=== PATIENT | male | born 1965 | race Caucasian/White ===

== ENCOUNTER 2021-02-21 17:28 | Inpatient (IN) ==
[2021-02-21] MEDS ORDERED: SODIUM CHLORIDE 0.9% 2,000 ML IV STA (18:13)
[2021-02-21] MEDS ORDERED: cefTRIAXone 1,000 MG in SODIUM CHLORIDE 0.9% 100 ML IV STA (18:13)
[2021-02-21 18:20] LABS: Basophils % 0.1 % (0.0-0.8); Hematocrit 40.1 VOL% (42.0-52.0); Hemoglobin 13.6 GM/DL (14.0-18.0); Immature Granulocytes % 1.1 %; Immature Granulocytes Absolute 0.15 #; Lymphocytes # 0.7 10*3/uL (1.4-4.0); Lymphocytes % 4.9 % (21.2-54.2); Mean Corpuscular HGB Conc 33.9 GM/DL (32-36); Mean Platelet Volume 10.5 FL (9.6-12.0); Monocytes % 7.2 % (1.7-12.7); Neutrophils % 86.7 % (38.7-73.9); Platelet Count 455 T/CUMM (130-400); Red Blood Count 4.61 MC/CUMM (3.8-5.5); Red Cell Distribution Width 15.6 % (9.3-17.3); White Blood Count 14.3 T/CUMM (4-12)
[2021-02-21] MEDS ORDERED: ONDANSETRON 4 MG/2 ML VIAL IV STA (18:24)
[2021-02-21 18:32] LABS: ABG Base Excess -24.4 MMOL/L (-2.5-2.5); ABG HCO3 8.1 MMOL/L (20-26); ABG Oxygen Saturation 98.5 % (95-100); ABG TCO2 3.2 MMOL/L (23-27)
[2021-02-21 18:40] LABS: Bilirubin,Total 0.8 MG/DL (0.20-1.00); Calcium 9.5 MG/DL (8.5-10.1); Lactic Acid 1.9 MMOL/L (0.4-2.0); Osmolality,Calculated 318.7 MOS/KG (273-304); Potassium 3.8 MMOL/L (3.5-5.1); Total Protein 6.5 G/DL (6.4-8.2)
[2021-02-21 18:41] LABS: ABG PCO2 9.2 MM HG (35-48); ABG PH 7.195 (7.35-7.45)
[2021-02-21] MEDS ORDERED: SODIUM BICARBONATE 50 MEQ/50 ML VIAL IV STA (18:44)
[2021-02-21 18:45] LABS: PT Patient Result 11.4 SECS (10.5-12.0)
[2021-02-21 19:24] LABS: Bacteria,Urine Occasional /HPF (Few); Bilirubin,Urine Negative (Negative); Blood, Urine Small mg/dL (Negative); Glucose,Urine (UA) >=500 mg/dL (Negative); Hyaline Casts,Urine 56 /LPF (0-3); Ketones,Urine 80 mg/dL (Negative); Mucus,Urine Occasional /LPF (Occasional); Nitrite,Urine Negative (Negative); Protein,Urine 30 MG/DL; RBC,Urine 4 /HPF (0-4); Squamous Epithelial Cell,Urine Occasional /HPF (0-10); Urine Appearance Slightly Hazy (Clear); Urine Color Yellow (Yellow); Urine Specific Gravity 1.021 (1.001-1.035); Urine Urobilinogen < 2.0 EU/DL (0.2-1.0)
[2021-02-21] MEDS ORDERED: LACTATED RINGERS 1,000 ML IV ONE ×3 (20:00→22:27)
[2021-02-21 20:01] LABS: Barbiturates Screen,Urine Negative (Negative); Benzodiazepines Screen,Urine Negative (Negative); Cannabinoid Screen,Urine Negative (Negative); Opiate Screen,Urine Positive (Negative); Phencyclidine Screen,Urine Negative (Negative)
[2021-02-21 20:48] LABS: ABG Base Excess -18.7 MMOL/L (-2.5-2.5); ABG HCO3 4.3 MMOL/L (20-26); ABG Oxygen Saturation 98.3 % (95-100); ABG PH 7.304 (7.35-7.45); ABG PO2 152.1 MM HG (80-95); ABG TCO2 4.6 MMOL/L (23-27)
[2021-02-21] MEDS ORDERED: ROCURONIUM 100 MG/10 ML VIAL IV ONE ×2 (20:50→21:11)
[2021-02-21] MEDS ORDERED: ETOMIDATE 20 MG/10 ML VIAL IV ONE ×2 (20:50→21:09)
[2021-02-21 20:53] LABS: ABG PCO2 8.9 MM HG (35-48)
[2021-02-21] MEDS ORDERED: METOPROLOL TARTRATE 5 MG/5 ML VIAL IV ONE ×2 (21:26→21:27)
[2021-02-21] MEDS ORDERED: ALBUTEROL 2.5 MG/3 ML NEB RESP TX PRN (21:27)
[2021-02-21] MEDS ORDERED: MAGNESIUM SULF RIDER 2 GM/50 ML PREMIX IV PRN (21:28)
[2021-02-21] MEDS ORDERED: MAGNESIUM SULF RIDER 4 GM/100 ML PREMIX IV PRN (21:28)
[2021-02-21] MEDS ORDERED: ONDANSETRON 4 MG/2 ML VIAL IV PRN (21:28)
[2021-02-21] MEDS ORDERED: NOREPINEPHRINE 8 MG in SODIUM CHLORIDE 0.9% 242 ML IV PRN (21:28)
[2021-02-21] MEDS ORDERED: PHENYLEPHRINE DRIP 40 MG/250 ML PREMIX IV ONE (21:33)
[2021-02-21] MEDS ORDERED: SODIUM BICARBONATE 50 MEQ/50 ML VIAL IV ONE ×3 (21:39→23:18)
[2021-02-21] MEDS: PHENYLEPHRINE DRIP 40 MG/250 ML PREMIX IV PRN ×2 (21:41→23:08)
[2021-02-21] MEDS ORDERED: DIGOXIN 0.5 MG/2 ML AMP IV ONE ×2 (21:46→22:30)
[2021-02-21] MEDS ORDERED: SODIUM BICARB INJ 100 MEQ in DEXTROSE 5% 1,000 ML IV SCH (22:00)
[2021-02-21] MEDS: LEVOFLOXACIN INJ 750 MG/150 ML PREMIX IV SCH (22:58)
[2021-02-21] MEDS: MIDAZOLAM 100 MG in SODIUM CHLORIDE 0.9% 80 ML IV PRN (22:59)
[2021-02-21] MEDS: POTASSIUM CHLORIDE RIDER 20 MEQ/100 ML PREMIX IV PRN (23:01)
[2021-02-21] MEDS ORDERED: SODIUM BICARBONATE 50 MEQ/50 ML SYRINGE IV ONE (23:09)
[2021-02-21] MEDS: INSULIN REGULAR DRIP 100 ML IV PRN (23:22)
[2021-02-21] MEDS ORDERED: LACTATED RINGERS 500 ML IV ONE (23:37)
[2021-02-21 23:41] LABS: Calcium 9.5 MG/DL (8.5-10.1); Osmolality,Calculated 320.4 MOS/KG (273-304); Potassium 3.5 MMOL/L (3.5-5.1)
[2021-02-21 23:48] LABS: ABG Base Excess -16.5 MMOL/L (-2.5-2.5); ABG HCO3 12.3 MMOL/L (20-26); ABG Oxygen Saturation 99.3 % (95-100); ABG PCO2 35.7 MM HG (35-48); ABG TCO2 11.1 MMOL/L (23-27)
[2021-02-21 23:49] LABS: ABG PH 7.141 (7.35-7.45)
[2021-02-22] MEDS ORDERED: SODIUM BICARBONATE 50 MEQ/50 ML VIAL IV ONE
[2021-02-22] MEDS: PHENYLEPHRINE DRIP 40 MG/250 ML PREMIX IV PRN ×9 (00:45→16:40)
[2021-02-22] MEDS ORDERED: GLUCAGON 1 MG VIAL IM PRN (00:59)
[2021-02-22] MEDS ORDERED: DEXTROSE 50% 25 GM/50 ML VIAL IV PRN (00:59)
[2021-02-22 02:25] LABS: ABG Base Excess -11.4 MMOL/L (-2.5-2.5); ABG HCO3 15.6 MMOL/L (20-26); ABG Oxygen Saturation 99.8 % (95-100); ABG PCO2 25.3 MM HG (35-48); ABG PH 7.326 (7.35-7.45); ABG TCO2 11.7 MMOL/L (23-27)
[2021-02-22] MEDS: POTASSIUM CHLORIDE RIDER 20 MEQ/100 ML PREMIX IV PRN ×2 (03:53→05:51)
[2021-02-22 05:03] LABS: ABG Base Excess -6.8 MMOL/L (-2.5-2.5); ABG HCO3 18.9 MMOL/L (20-26); ABG Oxygen Saturation 99.8 % (95-100); ABG PH 7.406 (7.35-7.45); ABG TCO2 14.2 MMOL/L (23-27)
[2021-02-22 05:11] LABS: Basophils % 0.2 % (0.0-0.8); Hematocrit 38.1 VOL% (42.0-52.0); Hemoglobin 13.2 GM/DL (14.0-18.0); Immature Granulocytes Absolute 0.11 #; Lymphocytes # 0.7 10*3/uL (1.4-4.0); Lymphocytes % 6.8 % (21.2-54.2); Mean Corpuscular HGB Conc 34.6 GM/DL (32-36); Mean Corpuscular Volume 84.7 FL (87-102); Mean Platelet Volume 10.2 FL (9.6-12.0); Monocytes % 9.4 % (1.7-12.7); Neutrophils % 82.6 % (38.7-73.9); Platelet Count 443 T/CUMM (130-400); Red Cell Distribution Width 15.6 % (9.3-17.3); White Blood Count 10.8 T/CUMM (4-12)
[2021-02-22 05:21] LABS: Calcium 8.9 MG/DL (8.5-10.1); Osmolality,Calculated 317.9 MOS/KG (273-304)
[2021-02-22] MEDS ORDERED: SODIUM BICARB INJ 100 MEQ in DEXTROSE 5% 1,000 ML IV SCH (07:00)
[2021-02-22] MEDS ORDERED: MIDAZOLAM 2 MG/2 ML VIAL IV PRN (08:10)
[2021-02-22] MEDS: POTASSIUM CHLORIDE RIDER 10 MEQ/100 ML PREMIX IV PRN (08:21)
[2021-02-22] MEDS: PANTOPRAZOLE 40 MG VIAL IV SCH (08:35)
[2021-02-22] MEDS: HYDROmorphone 2 MG/1 ML VIAL IV PRN (09:02)
[2021-02-22] MEDS: POTASSIUM CHLORIDE INJ 40 MEQ in DEXTROSE 5% LACTATED RINGERS 1,000 ML IV SCH ×2 (09:18→17:34)
[2021-02-22] MEDS ORDERED: DIGOXIN 0.5 MG/2 ML AMP IV ONE (09:45)
[2021-02-22] MEDS: MIDAZOLAM 100 MG in SODIUM CHLORIDE 0.9% 80 ML IV PRN ×2 (10:18→20:13)
[2021-02-22] MEDS ORDERED: AMIODARONE INJ 150 MG in DEXTROSE 5% 100 ML IV ONE ×4 (10:53→17:08)
[2021-02-22 11:02] LABS: Potassium 3.5 MMOL/L (3.5-5.1)
[2021-02-22] MEDS ORDERED: METOPROLOL TARTRATE 5 MG/5 ML VIAL IV ONE ×3 (12:22→17:06)
[2021-02-22 15:57] LABS: ABG Base Excess -5.3 MMOL/L (-2.5-2.5); ABG HCO3 20.1 MMOL/L (20-26); ABG Oxygen Saturation 98.3 % (95-100); ABG PCO2 32.7 MM HG (35-48); ABG PH 7.371 (7.35-7.45); ABG TCO2 16.3 MMOL/L (23-27)
[2021-02-22] MEDS ORDERED: AMIODARONE 150 MG/3 ML VIAL ONE (16:17)
[2021-02-22] MEDS ORDERED: AMIODARONE INJ 450 MG in DEXTROSE 5% 241 ML IV SCH ×2 (16:30→22:30)
[2021-02-22 17:04] LABS: Potassium 3.8 MMOL/L (3.5-5.1)
[2021-02-22] MEDS ORDERED: LACTATED RINGERS 500 ML IV ONE (17:07)
[2021-02-22] MEDS: PHENYLEPHRINE INJ 160 MG in SODIUM CHLORIDE 0.9% 234 ML IV PRN (19:42)
[2021-02-22] MEDS: ACETAMINOPHEN 500 MG TABLET PO PRN (20:37)
[2021-02-22] MEDS ORDERED: ETOMIDATE 20 MG/10 ML VIAL IV ONE (21:09)
[2021-02-22] MEDS ORDERED: ROCURONIUM 100 MG/10 ML VIAL IV ONE (21:11)
[2021-02-22 23:11] LABS: Calcium 9.2 MG/DL (8.5-10.1); Osmolality,Calculated 314.6 MOS/KG (273-304); Potassium 3.8 MMOL/L (3.5-5.1)
[2021-02-23] MEDS: PHENYLEPHRINE INJ 160 MG in SODIUM CHLORIDE 0.9% 234 ML IV PRN ×2 (01:45→14:13)
[2021-02-23] MEDS: POTASSIUM CHLORIDE INJ 40 MEQ in DEXTROSE 5% LACTATED RINGERS 1,000 ML IV SCH (01:46)
[2021-02-23 04:00] LABS: ABG HCO3 25.3 MMOL/L (20-26); ABG Oxygen Saturation 99.7 % (95-100); ABG PCO2 31.3 MM HG (35-48); ABG PH 7.484 (7.35-7.45); ABG TCO2 20.2 MMOL/L (23-27)
[2021-02-23 04:04] LABS: Basophils % 0.1 % (0.0-0.8); Hematocrit 38.5 VOL% (42.0-52.0); Hemoglobin 13.2 GM/DL (14.0-18.0); Immature Granulocytes % 0.7 %; Immature Granulocytes Absolute 0.08 #; Lymphocytes # 1.2 10*3/uL (1.4-4.0); Lymphocytes % 10.1 % (21.2-54.2); Mean Corpuscular HGB Conc 34.3 GM/DL (32-36); Mean Corpuscular Volume 84.8 FL (87-102); NRBC # 0.03 10*3/uL; Neutrophils % 79.1 % (38.7-73.9); Platelet Count 338 T/CUMM (130-400); Red Blood Count 4.54 MC/CUMM (3.8-5.5); White Blood Count 11.8 T/CUMM (4-12)
[2021-02-23 04:32] LABS: Albumin 2.3 G/DL (3.4-5.0); Bilirubin,Total 1.6 MG/DL (0.20-1.00); Calcium 9.2 MG/DL (8.5-10.1); Osmolality,Calculated 314.4 MOS/KG (273-304); Potassium 3.6 MMOL/L (3.5-5.1); Total Protein 5.7 G/DL (6.4-8.2)
[2021-02-23 05:15] LABS: Band Neutrophils 7 % (0-10); Hypochromasia 1+; Lymphocytes 13 % (20-55); Microcytosis 1+; Nucleated Red Blood Cells 2 (0-5); Segmented Neutrophils 73 % (50-85); Total Cells Counted 100
[2021-02-23 05:16] LABS: Platelet Estimate Normal
[2021-02-23] MEDS: INSULIN REGULAR DRIP 100 ML IV PRN (05:23)
[2021-02-23] MEDS: ACETAMINOPHEN 500 MG TABLET PO PRN ×2 (06:24→20:24)
[2021-02-23] MEDS: POTASSIUM CHLORIDE INJ 40 MEQ in DEXTROSE 5% 1,000 ML IV SCH ×3 (08:11→21:46)
[2021-02-23] MEDS: PANTOPRAZOLE 40 MG VIAL IV SCH (08:16)
[2021-02-23] MEDS: METOPROLOL TARTRATE 25 MG TABLET PO SCH ×2 (08:52→20:23)
[2021-02-23] MEDS: MIDAZOLAM 100 MG in SODIUM CHLORIDE 0.9% 80 ML IV PRN ×2 (09:01→19:58)
[2021-02-23] MEDS: LEVOFLOXACIN INJ 750 MG/150 ML PREMIX IV SCH (20:23)
[2021-02-24] MEDS: HYDROmorphone 2 MG/1 ML VIAL IV PRN ×4 (02:16→21:15)
[2021-02-24 04:35] LABS: ABG Base Excess 1.9 MMOL/L (-2.5-2.5); ABG HCO3 26.2 MMOL/L (20-26); ABG Oxygen Saturation 99.4 % (95-100); ABG PCO2 35.6 MM HG (35-48); ABG PH 7.461 (7.35-7.45); ABG TCO2 21.9 MMOL/L (23-27)
[2021-02-24 04:39] LABS: Basophils % 0.1 % (0.0-0.8); Eosinophils % 0.1 % (0.00-10.9); Hematocrit 37.5 VOL% (42.0-52.0); Hemoglobin 12.5 GM/DL (14.0-18.0); Immature Granulocytes % 0.8 %; Immature Granulocytes Absolute 0.12 #; Lymphocytes % 13.4 % (21.2-54.2); Mean Corpuscular HGB Conc 33.3 GM/DL (32-36); Mean Corpuscular Volume 87.6 FL (87-102); Mean Platelet Volume 10.8 FL (9.6-12.0); Monocytes % 4.9 % (1.7-12.7); NRBC # 0.03 10*3/uL; Neutrophils % 80.7 % (38.7-73.9); Platelet Count 241 T/CUMM (130-400); Red Blood Count 4.28 MC/CUMM (3.8-5.5); Red Cell Distribution Width 16.5 % (9.3-17.3); White Blood Count 14.9 T/CUMM (4-12)
[2021-02-24] MEDS: POTASSIUM CHLORIDE INJ 40 MEQ in DEXTROSE 5% 1,000 ML IV SCH ×3 (04:51→15:07)
[2021-02-24 04:52] LABS: Albumin 2.1 G/DL (3.4-5.0); Bilirubin,Total 0.7 MG/DL (0.20-1.00); Calcium 8.9 MG/DL (8.5-10.1); Potassium 4.4 MMOL/L (3.5-5.1); Total Protein 5.6 G/DL (6.4-8.2)
[2021-02-24 05:03] LABS: Band Neutrophils 3 % (0-10); Lymphocytes 7 % (20-55); Segmented Neutrophils 87 % (50-85); Total Cells Counted 100
[2021-02-24 05:04] LABS: Microcytosis 1+
[2021-02-24] MEDS: MIDAZOLAM 100 MG in SODIUM CHLORIDE 0.9% 80 ML IV PRN (07:05)
[2021-02-24] MEDS: PHENYLEPHRINE INJ 160 MG in SODIUM CHLORIDE 0.9% 234 ML IV PRN ×2 (08:12→20:50)
[2021-02-24] MEDS: PANTOPRAZOLE 40 MG VIAL IV SCH (09:58)
[2021-02-24] MEDS: METOPROLOL TARTRATE 25 MG TABLET PO SCH ×2 (09:58→20:42)
[2021-02-24] MEDS: INSULIN LISPRO 100 UNIT/ML SUBCUT SCH ×4 (09:59→22:18)
[2021-02-24] MEDS: INSULIN GLARGINE 100 UNIT/ML SUBCUT SCH (09:59)
[2021-02-24] MEDS: LEVOFLOXACIN INJ 750 MG/150 ML PREMIX IV SCH (10:37)
[2021-02-24] MEDS: QUEtiapine 25 MG TABLET PER TUBE SCH ×2 (14:02→22:00)
[2021-02-24] MEDS: ACETAMINOPHEN 500 MG TABLET PO PRN (23:15)
[2021-02-25] MEDS: POTASSIUM CHLORIDE INJ 40 MEQ in DEXTROSE 5% 1,000 ML IV SCH ×4 (00:50→20:00)
[2021-02-25] MEDS: INSULIN LISPRO 100 UNIT/ML SUBCUT SCH ×3 (02:43→17:00)
[2021-02-25 04:09] LABS: ABG Base Excess 3.8 MMOL/L (-2.5-2.5); ABG HCO3 27.9 MMOL/L (20-26); ABG PCO2 35.5 MM HG (35-48)
[2021-02-25 04:12] LABS: Basophils % 0.1 % (0.0-0.8); Eosinophils # 0.1 10*3/uL (0.0-0.87); Eosinophils % 0.3 % (0.00-10.9); Hematocrit 35.1 VOL% (42.0-52.0); Hemoglobin 11.6 GM/DL (14.0-18.0); Immature Granulocytes % 0.8 %; Immature Granulocytes Absolute 0.13 #; Lymphocytes # 2.1 10*3/uL (1.4-4.0); Lymphocytes % 13.2 % (21.2-54.2); Mean Corpuscular Volume 88.9 FL (87-102); Mean Platelet Volume 10.8 FL (9.6-12.0); Monocytes % 5.5 % (1.7-12.7); NRBC # 0.02 10*3/uL; Neutrophils % 80.1 % (38.7-73.9); Platelet Count 186 T/CUMM (130-400); Red Blood Count 3.95 MC/CUMM (3.8-5.5); Red Cell Distribution Width 16.1 % (9.3-17.3); White Blood Count 16.3 T/CUMM (4-12)
[2021-02-25 04:36] LABS: Albumin 1.8 G/DL (3.4-5.0); Bilirubin,Total 0.7 MG/DL (0.20-1.00); Calcium 8.7 MG/DL (8.5-10.1); Osmolality,Calculated 300.4 MOS/KG (273-304); Potassium 4.6 MMOL/L (3.5-5.1); Total Protein 5.3 G/DL (6.4-8.2)
[2021-02-25] MEDS: MIDAZOLAM 100 MG in SODIUM CHLORIDE 0.9% 80 ML IV PRN (05:28)
[2021-02-25] MEDS ORDERED: INSULIN LISPRO 100 UNIT/ML SUBCUT SCH (08:00)
[2021-02-25 08:14] LABS: Anisocytosis 1+; Band Neutrophils 23 % (0-10); Burr Cells Few; Lymphocytes 12 % (20-55); Nucleated Red Blood Cells 1 (0-5); Platelet Estimate Normal; Segmented Neutrophils 60 % (50-85); Total Cells Counted 100
[2021-02-25] MEDS: METOPROLOL TARTRATE 25 MG TABLET PO SCH ×2 (09:28→21:22)
[2021-02-25] MEDS: PANTOPRAZOLE 40 MG VIAL IV SCH (09:28)
[2021-02-25] MEDS: QUEtiapine 25 MG TABLET PER TUBE SCH ×2 (09:28→21:22)
[2021-02-25] MEDS: LEVOFLOXACIN INJ 750 MG/150 ML PREMIX IV SCH (09:29)
[2021-02-25] MEDS: INSULIN GLARGINE 100 UNIT/ML SUBCUT SCH ×2 (09:46→09:51)
[2021-02-25] MEDS: TRIAMCINOLONE 0.025% CREAM 15 GM TUBE TOP SCH ×2 (10:29→21:22)
[2021-02-25] MEDS: PHENYLEPHRINE INJ 160 MG in SODIUM CHLORIDE 0.9% 234 ML IV PRN (10:30)
[2021-02-25] MEDS: HYDROmorphone 2 MG/1 ML VIAL IV PRN ×2 (11:30→21:26)
[2021-02-25] MEDS: METOPROLOL TARTRATE 5 MG/5 ML VIAL IV PRN (16:06)
[2021-02-26 04:53] LABS: ABG Base Excess 4.5 MMOL/L (-2.5-2.5); ABG HCO3 28.5 MMOL/L (20-26); ABG Oxygen Saturation 99.1 % (95-100); ABG PCO2 39.7 MM HG (35-48); ABG PH 7.464 (7.35-7.45); ABG TCO2 25.1 MMOL/L (23-27)
[2021-02-26 04:57] LABS: Basophils % 0.2 % (0.0-0.8); Eosinophils # 0.2 10*3/uL (0.0-0.87); Eosinophils % 1.3 % (0.00-10.9); Hematocrit 36.1 VOL% (42.0-52.0); Hemoglobin 11.9 GM/DL (14.0-18.0); Immature Granulocytes % 0.8 %; Lymphocytes # 1.5 10*3/uL (1.4-4.0); Lymphocytes % 11.7 % (21.2-54.2); Mean Corpuscular Volume 89.6 FL (87-102); Mean Platelet Volume 11.4 FL (9.6-12.0); Monocytes % 7.6 % (1.7-12.7); Neutrophils % 78.4 % (38.7-73.9); Platelet Count 174 T/CUMM (130-400); Red Blood Count 4.03 MC/CUMM (3.8-5.5); Red Cell Distribution Width 15.2 % (9.3-17.3); White Blood Count 12.7 T/CUMM (4-12)
[2021-02-26 05:19] LABS: Band Neutrophils 3 % (0-10); Eosinophils 2 % (0-10); Lymphocytes 7 % (20-55); Nucleated Red Blood Cells 1 (0-5); Platelet Estimate Normal; Segmented Neutrophils 83 % (50-85); Total Cells Counted 100
[2021-02-26 05:20] LABS: Albumin 1.6 G/DL (3.4-5.0); Bilirubin,Total 0.6 MG/DL (0.20-1.00); Calcium 8.5 MG/DL (8.5-10.1); Osmolality,Calculated 286.4 MOS/KG (273-304); Potassium 4.6 MMOL/L (3.5-5.1); Total Protein 5.4 G/DL (6.4-8.2)
[2021-02-26] MEDS: INSULIN LISPRO 100 UNIT/ML SUBCUT SCH ×4 (05:29→17:49)
[2021-02-26] MEDS: MIDAZOLAM 100 MG in SODIUM CHLORIDE 0.9% 80 ML IV PRN (09:53)
[2021-02-26] MEDS: TRIAMCINOLONE 0.025% CREAM 15 GM TUBE TOP SCH ×2 (10:03→23:04)
[2021-02-26] MEDS: INSULIN GLARGINE 100 UNIT/ML SUBCUT SCH (10:04)
[2021-02-26] MEDS: METOPROLOL TARTRATE 25 MG TABLET PO SCH ×2 (10:05→21:55)
[2021-02-26] MEDS: QUEtiapine 25 MG TABLET PER TUBE SCH ×2 (10:05→21:55)
[2021-02-26] MEDS: PANTOPRAZOLE 40 MG VIAL IV SCH (10:09)
[2021-02-26] MEDS: LEVOFLOXACIN INJ 750 MG/150 ML PREMIX IV SCH (10:12)
[2021-02-26] MEDS: METOPROLOL TARTRATE 5 MG/5 ML VIAL IV PRN ×2 (12:09→16:16)
[2021-02-26] MEDS: POTASSIUM CHLORIDE INJ 40 MEQ in DEXTROSE 5% 1,000 ML IV SCH (19:02)
[2021-02-26] MEDS: HYDROmorphone 2 MG/1 ML VIAL IV PRN (20:05)
[2021-02-26] MEDS ORDERED: METOPROLOL TARTRATE 5 MG/5 ML VIAL IV ONE (21:44)
[2021-02-26] MEDS: NICOTINE 21 MG/24 HR PATCH TRANSDERM PRN (23:01)
[2021-02-27] MEDS: INSULIN LISPRO 100 UNIT/ML SUBCUT SCH ×5 (01:49→23:47)
[2021-02-27] MEDS: MIDAZOLAM 100 MG in SODIUM CHLORIDE 0.9% 80 ML IV PRN (02:58)
[2021-02-27 04:45] LABS: Basophils % 0.2 % (0.0-0.8); Eosinophils # 0.1 10*3/uL (0.0-0.87); Eosinophils % 1.4 % (0.00-10.9); Hematocrit 36.5 VOL% (42.0-52.0); Hemoglobin 11.9 GM/DL (14.0-18.0); Immature Granulocytes % 0.7 %; Immature Granulocytes Absolute 0.07 #; Lymphocytes # 0.9 10*3/uL (1.4-4.0); Lymphocytes % 9.4 % (21.2-54.2); Mean Corpuscular HGB Conc 32.6 GM/DL (32-36); Mean Corpuscular Volume 90.6 FL (87-102); Mean Platelet Volume 11.3 FL (9.6-12.0); Neutrophils % 79.3 % (38.7-73.9); Platelet Count 171 T/CUMM (130-400); Red Blood Count 4.03 MC/CUMM (3.8-5.5); Red Cell Distribution Width 14.7 % (9.3-17.3); White Blood Count 9.8 T/CUMM (4-12)
[2021-02-27 04:46] LABS: ABG Base Excess 4.3 MMOL/L (-2.5-2.5); ABG HCO3 28.3 MMOL/L (20-26); ABG Oxygen Saturation 98.4 % (95-100); ABG PCO2 41.6 MM HG (35-48); ABG PH 7.447 (7.35-7.45); ABG TCO2 25.3 MMOL/L (23-27)
[2021-02-27 05:04] LABS: Albumin 1.6 G/DL (3.4-5.0); Bilirubin,Total 1.6 MG/DL (0.20-1.00); Calcium 8.5 MG/DL (8.5-10.1); Osmolality,Calculated 288.1 MOS/KG (273-304); Potassium 4.4 MMOL/L (3.5-5.1); Total Protein 5.7 G/DL (6.4-8.2)
[2021-02-27] MEDS: HYDROmorphone 2 MG/1 ML VIAL IV PRN ×3 (05:14→20:58)
[2021-02-27] MEDS: METOPROLOL TARTRATE 5 MG/5 ML VIAL IV PRN ×3 (05:16→21:01)
[2021-02-27 05:18] LABS: Eosinophils 1 % (0-10); Lymphocytes 11 % (20-55); Segmented Neutrophils 80 % (50-85); Total Cells Counted 100
[2021-02-27 05:19] LABS: Hypochromasia Slight; Microcytosis 1+; Ovalocytes Slight
[2021-02-27] MEDS: PANTOPRAZOLE 40 MG VIAL IV SCH (09:05)
[2021-02-27] MEDS: INSULIN GLARGINE 100 UNIT/ML SUBCUT SCH (09:05)
[2021-02-27] MEDS: LEVOFLOXACIN INJ 750 MG/150 ML PREMIX IV SCH (09:10)
[2021-02-27] MEDS: QUEtiapine 25 MG TABLET PER TUBE SCH ×2 (09:15→20:56)
[2021-02-27] MEDS: METOPROLOL TARTRATE 25 MG TABLET PO SCH (09:15)
[2021-02-27] MEDS: TRIAMCINOLONE 0.025% CREAM 15 GM TUBE TOP SCH ×2 (10:15→20:58)
[2021-02-27 11:16] LABS: ABG Base Excess 5.3 MMOL/L (-2.5-2.5); ABG HCO3 29.2 MMOL/L (20-26); ABG Oxygen Saturation 98.9 % (95-100); ABG PCO2 43.7 MM HG (35-48); ABG PH 7.445 (7.35-7.45); ABG TCO2 26.6 MMOL/L (23-27)
[2021-02-27] MEDS ORDERED: METOPROLOL TARTRATE 25 MG TABLET PO ONE (12:30)
[2021-02-27] MEDS: DEXMEDETOMIDINE 400 MCG in SODIUM CHLORIDE 0.9% 96 ML IV PRN (20:00)
[2021-02-27] MEDS ORDERED: METOPROLOL TARTRATE 50 MG TABLET PO SCH (21:00)
[2021-02-28] MEDS: HYDROmorphone 2 MG/1 ML VIAL IV PRN ×4 (00:09→22:21)
[2021-02-28] MEDS: METOPROLOL TARTRATE 5 MG/5 ML VIAL IV PRN ×4 (03:11→13:34)
[2021-02-28 04:42] LABS: ABG Base Excess 2.7 MMOL/L (-2.5-2.5); ABG HCO3 26.8 MMOL/L (20-26); ABG Oxygen Saturation 99.1 % (95-100); ABG PCO2 41.9 MM HG (35-48); ABG PH 7.424 (7.35-7.45); ABG TCO2 24.1 MMOL/L (23-27)
[2021-02-28 05:01] LABS: Basophils % 0.1 % (0.0-0.8); Eosinophils % 0.1 % (0.00-10.9); Hematocrit 36.5 VOL% (42.0-52.0); Immature Granulocytes % 0.9 %; Lymphocytes # 0.7 10*3/uL (1.4-4.0); Lymphocytes % 6.3 % (21.2-54.2); Mean Corpuscular HGB Conc 32.9 GM/DL (32-36); Mean Corpuscular Volume 90.1 FL (87-102); Mean Platelet Volume 11.1 FL (9.6-12.0); Monocytes % 8.8 % (1.7-12.7); Neutrophils % 83.8 % (38.7-73.9); Platelet Count 256 T/CUMM (130-400); Red Blood Count 4.05 MC/CUMM (3.8-5.5); Red Cell Distribution Width 14.5 % (9.3-17.3); White Blood Count 11.2 T/CUMM (4-12)
[2021-02-28 05:17] LABS: Albumin 1.7 G/DL (3.4-5.0); Bilirubin,Total 0.5 MG/DL (0.20-1.00); Calcium 8.5 MG/DL (8.5-10.1); Osmolality,Calculated 292.3 MOS/KG (273-304); Potassium 4.5 MMOL/L (3.5-5.1); Total Protein 6.1 G/DL (6.4-8.2)
[2021-02-28] MEDS: DEXMEDETOMIDINE 400 MCG in SODIUM CHLORIDE 0.9% 96 ML IV PRN ×3 (05:38→22:09)
[2021-02-28] MEDS: INSULIN LISPRO 100 UNIT/ML SUBCUT SCH ×3 (05:44→18:09)
[2021-02-28] MEDS ORDERED: HYDROmorphone 2 MG/1 ML VIAL IV ONE (06:25)
[2021-02-28] MEDS: QUEtiapine 25 MG TABLET PER TUBE SCH ×2 (09:18→21:40)
[2021-02-28] MEDS: METOPROLOL TARTRATE 50 MG TABLET PO SCH ×2 (09:18→21:45)
[2021-02-28] MEDS: INSULIN GLARGINE 100 UNIT/ML SUBCUT SCH (09:24)
[2021-02-28] MEDS: LEVOFLOXACIN INJ 750 MG/150 ML PREMIX IV SCH (09:26)
[2021-02-28] MEDS: PANTOPRAZOLE 40 MG VIAL IV SCH (09:33)
[2021-02-28] MEDS: TRIAMCINOLONE 0.025% CREAM 15 GM TUBE TOP SCH ×2 (09:37→22:12)
[2021-02-28] MEDS ORDERED: ADENOSINE 6 MG/2 ML VIAL ONE (14:01)
[2021-02-28] MEDS ORDERED: ADENOSINE 6 MG/2 ML VIAL IV ONE (14:03)
[2021-02-28] MEDS ORDERED: DILTIAZEM 50 MG/10 ML VIAL IV ONE (14:17)
[2021-02-28] MEDS: DILTIAZEM INJ 100 MG in SODIUM CHLORIDE 0.9% 100 ML IV SCH ×2 (14:28→19:42)
[2021-02-28] MEDS: NICOTINE 21 MG/24 HR PATCH TRANSDERM PRN (22:11)
[2021-03-01] MEDS: INSULIN LISPRO 100 UNIT/ML SUBCUT SCH ×4 (00:56→18:31)
[2021-03-01] MEDS: DILTIAZEM INJ 100 MG in SODIUM CHLORIDE 0.9% 100 ML IV SCH (02:51)
[2021-03-01 04:38] LABS: ABG Base Excess 5.9 MMOL/L (-2.5-2.5); ABG HCO3 29.7 MMOL/L (20-26); ABG Oxygen Saturation 99.1 % (95-100); ABG PCO2 40.8 MM HG (35-48); ABG PH 7.474 (7.35-7.45); ABG TCO2 24.9 MMOL/L (23-27)
[2021-03-01 04:48] LABS: Basophils % 0.1 % (0.0-0.8); Eosinophils % 0.1 % (0.00-10.9); Hematocrit 31.8 VOL% (42.0-52.0); Hemoglobin 10.3 GM/DL (14.0-18.0); Immature Granulocytes % 0.8 %; Immature Granulocytes Absolute 0.06 #; Lymphocytes % 12.8 % (21.2-54.2); Mean Corpuscular HGB Conc 32.4 GM/DL (32-36); Mean Corpuscular Volume 89.3 FL (87-102); Mean Platelet Volume 10.8 FL (9.6-12.0); Monocytes % 12.8 % (1.7-12.7); Neutrophils % 73.4 % (38.7-73.9); Platelet Count 258 T/CUMM (130-400); Red Blood Count 3.56 MC/CUMM (3.8-5.5); Red Cell Distribution Width 14.2 % (9.3-17.3); White Blood Count 7.4 T/CUMM (4-12)
[2021-03-01] MEDS: DEXMEDETOMIDINE 400 MCG in SODIUM CHLORIDE 0.9% 96 ML IV PRN (05:04)
[2021-03-01 05:17] LABS: Hypochromasia 1+; Lymphocytes 10 % (20-55); Microcytosis 1+; Platelet Estimate Adequate; Segmented Neutrophils 82 % (50-85); Total Cells Counted 100
[2021-03-01 05:18] LABS: Albumin 1.5 G/DL (3.4-5.0); Bilirubin,Total 0.7 MG/DL (0.20-1.00); Calcium 8.3 MG/DL (8.5-10.1); Osmolality,Calculated 296.6 MOS/KG (273-304); Total Protein 5.2 G/DL (6.4-8.2)
[2021-03-01] MEDS: QUEtiapine 25 MG TABLET PER TUBE SCH ×2 (08:44→20:36)
[2021-03-01] MEDS: METOPROLOL TARTRATE 50 MG TABLET PO SCH ×2 (08:44→20:36)
[2021-03-01] MEDS: LEVOFLOXACIN INJ 750 MG/150 ML PREMIX IV SCH (08:47)
[2021-03-01] MEDS: PANTOPRAZOLE 40 MG VIAL IV SCH (08:48)
[2021-03-01] MEDS: TRIAMCINOLONE 0.025% CREAM 15 GM TUBE TOP SCH ×2 (08:48→20:37)
[2021-03-01] MEDS: INSULIN GLARGINE 100 UNIT/ML SUBCUT SCH (08:55)
[2021-03-01] MEDS: METOPROLOL TARTRATE 5 MG/5 ML VIAL IV PRN ×2 (14:48→19:39)
[2021-03-01] MEDS ORDERED: METOPROLOL TARTRATE 5 MG/5 ML VIAL IV ONE (16:21)
[2021-03-01] MEDS ORDERED: oxyCODONE IR 5 MG TABLET PO PRN (18:28)
[2021-03-01] MEDS: ATORVASTATIN 40 MG TABLET PO SCH (20:36)
[2021-03-02] MEDS: METOPROLOL TARTRATE 5 MG/5 ML VIAL IV PRN ×4 (00:26→21:39)
[2021-03-02] MEDS: INSULIN LISPRO 100 UNIT/ML SUBCUT SCH ×4 (00:35→17:52)
[2021-03-02 04:42] LABS: Basophils % 0.1 % (0.0-0.8); Eosinophils % 0.2 % (0.00-10.9); Hematocrit 37.5 VOL% (42.0-52.0); Hemoglobin 12.1 GM/DL (14.0-18.0); Immature Granulocytes % 0.6 %; Immature Granulocytes Absolute 0.07 #; Lymphocytes # 1.4 10*3/uL (1.4-4.0); Lymphocytes % 12.5 % (21.2-54.2); Mean Corpuscular HGB Conc 32.3 GM/DL (32-36); Mean Corpuscular Volume 89.7 FL (87-102); Mean Platelet Volume 10.2 FL (9.6-12.0); Monocytes % 9.4 % (1.7-12.7); Neutrophils % 77.2 % (38.7-73.9); Platelet Count 351 T/CUMM (130-400); Red Blood Count 4.18 MC/CUMM (3.8-5.5); Red Cell Distribution Width 14.1 % (9.3-17.3); White Blood Count 10.9 T/CUMM (4-12)
[2021-03-02 05:15] LABS: Calcium 8.6 MG/DL (8.5-10.1); Osmolality,Calculated 290.1 MOS/KG (273-304); Potassium 3.4 MMOL/L (3.5-5.1)
[2021-03-02] MEDS: POTASSIUM CHLORIDE RIDER 20 MEQ/100 ML PREMIX IV PRN (05:37)
[2021-03-02] MEDS ORDERED: AMIODARONE INJ 450 MG in DEXTROSE 5% 241 ML IV SCH (06:00)
[2021-03-02] MEDS ORDERED: AMIODARONE INJ 150 MG in DEXTROSE 5% 100 ML IV ONE (06:01)
[2021-03-02] MEDS: POTASSIUM CHLORIDE RIDER 10 MEQ/100 ML PREMIX IV PRN (08:02)
[2021-03-02] MEDS: PANTOPRAZOLE 40 MG VIAL IV SCH (08:02)
[2021-03-02] MEDS: QUEtiapine 25 MG TABLET PER TUBE SCH ×2 (08:02→20:44)
[2021-03-02] MEDS: METOPROLOL TARTRATE 50 MG TABLET PO SCH ×2 (08:02→20:44)
[2021-03-02] MEDS: ASPIRIN EC 81 MG TABLET PO SCH (08:02)
[2021-03-02] MEDS: DILTIAZEM CD 240 MG CAPSULE PO SCH (08:02)
[2021-03-02] MEDS: INSULIN GLARGINE 100 UNIT/ML SUBCUT SCH (08:03)
[2021-03-02] MEDS: LEVOFLOXACIN INJ 750 MG/150 ML PREMIX IV SCH (08:03)
[2021-03-02] MEDS: HYDROmorphone 2 MG/1 ML VIAL IV PRN ×3 (08:04→20:46)
[2021-03-02] MEDS: TRIAMCINOLONE 0.025% CREAM 15 GM TUBE TOP SCH ×2 (09:57→20:50)
[2021-03-02] MEDS ORDERED: AMIODARONE 450 MG/9 ML VIAL IV ONE (14:27)
[2021-03-02] MEDS: AMIODARONE INJ 450 MG in DEXTROSE 5% 241 ML IV SCH (15:12)
[2021-03-02] MEDS: ATORVASTATIN 40 MG TABLET PO SCH (20:44)
[2021-03-03] MEDS: INSULIN LISPRO 100 UNIT/ML SUBCUT SCH ×4 (01:10→19:11)
[2021-03-03] MEDS: HYDROmorphone 2 MG/1 ML VIAL IV PRN ×2 (02:50→16:53)
[2021-03-03 03:31] LABS: Basophils % 0.2 % (0.0-0.8); Eosinophils # 0.1 10*3/uL (0.0-0.87); Eosinophils % 0.4 % (0.00-10.9); Hematocrit 37.6 VOL% (42.0-52.0); Hemoglobin 12.1 GM/DL (14.0-18.0); Immature Granulocytes % 0.9 %; Lymphocytes # 1.1 10*3/uL (1.4-4.0); Lymphocytes % 9.5 % (21.2-54.2); Mean Corpuscular HGB Conc 32.2 GM/DL (32-36); Mean Corpuscular Volume 89.5 FL (87-102); Mean Platelet Volume 9.9 FL (9.6-12.0); Monocytes % 7.1 % (1.7-12.7); Neutrophils % 81.9 % (38.7-73.9); Platelet Count 359 T/CUMM (130-400); Red Cell Distribution Width 14.2 % (9.3-17.3); White Blood Count 11.6 T/CUMM (4-12)
[2021-03-03 03:49] LABS: Albumin 1.7 G/DL (3.4-5.0); Bilirubin,Total 0.4 MG/DL (0.20-1.00); Calcium 8.3 MG/DL (8.5-10.1); Osmolality,Calculated 290.1 MOS/KG (273-304); Potassium 3.9 MMOL/L (3.5-5.1); Total Protein 5.4 G/DL (6.4-8.2)
[2021-03-03 04:05] LABS: Calcium 8.3 MG/DL (8.5-10.1); Osmolality,Calculated 290.1 MOS/KG (273-304); Potassium 4.2 MMOL/L (3.5-5.1)
[2021-03-03] MEDS: POTASSIUM CHLORIDE RIDER 20 MEQ/100 ML PREMIX IV PRN (04:05)
[2021-03-03] MEDS: METOPROLOL TARTRATE 50 MG TABLET PO SCH ×2 (08:01→20:53)
[2021-03-03] MEDS: ASPIRIN EC 81 MG TABLET PO SCH (08:01)
[2021-03-03] MEDS: QUEtiapine 25 MG TABLET PER TUBE SCH ×2 (08:01→20:54)
[2021-03-03] MEDS: DILTIAZEM CD 240 MG CAPSULE PO SCH (08:01)
[2021-03-03] MEDS: PANTOPRAZOLE 40 MG VIAL IV SCH (08:02)
[2021-03-03] MEDS: LEVOFLOXACIN INJ 750 MG/150 ML PREMIX IV SCH (08:02)
[2021-03-03] MEDS: AMIODARONE 200 MG TABLET PO SCH ×2 (08:11→20:53)
[2021-03-03] MEDS: TRIAMCINOLONE 0.025% CREAM 15 GM TUBE TOP SCH ×2 (08:12→20:54)
[2021-03-03] MEDS: AMIODARONE INJ 450 MG in DEXTROSE 5% 241 ML IV SCH (09:59)
[2021-03-03] MEDS: INSULIN GLARGINE 100 UNIT/ML SUBCUT SCH (12:05)
[2021-03-03] MEDS: ATORVASTATIN 40 MG TABLET PO SCH (20:54)
[2021-03-04] MEDS: INSULIN LISPRO 100 UNIT/ML SUBCUT SCH ×4 (01:01→18:05)
[2021-03-04 05:15] LABS: Basophils % 0.3 % (0.0-0.8); Eosinophils # 0.1 10*3/uL (0.0-0.87); Eosinophils % 0.8 % (0.00-10.9); Hematocrit 35.5 VOL% (42.0-52.0); Immature Granulocytes % 1.2 %; Immature Granulocytes Absolute 0.14 #; Lymphocytes # 1.4 10*3/uL (1.4-4.0); Lymphocytes % 12.2 % (21.2-54.2); Mean Corpuscular HGB Conc 33.8 GM/DL (32-36); Mean Corpuscular Volume 87.2 FL (87-102); Mean Platelet Volume 10.3 FL (9.6-12.0); Monocytes % 6.6 % (1.7-12.7); Neutrophils % 78.9 % (38.7-73.9); Platelet Count 378 T/CUMM (130-400); Red Blood Count 4.07 MC/CUMM (3.8-5.5); Red Cell Distribution Width 14.1 % (9.3-17.3); White Blood Count 11.7 T/CUMM (4-12)
[2021-03-04 05:47] LABS: Albumin 1.8 G/DL (3.4-5.0); Bilirubin,Total 0.7 MG/DL (0.20-1.00); Calcium 8.5 MG/DL (8.5-10.1); Osmolality,Calculated 283.5 MOS/KG (273-304); Potassium 3.9 MMOL/L (3.5-5.1); Total Protein 5.3 G/DL (6.4-8.2)
[2021-03-04] MEDS: DILTIAZEM CD 240 MG CAPSULE PO SCH (10:59)
[2021-03-04] MEDS: METOPROLOL TARTRATE 50 MG TABLET PO SCH ×2 (10:59→21:57)
[2021-03-04] MEDS: AMIODARONE 200 MG TABLET PO SCH ×2 (11:00→21:57)
[2021-03-04] MEDS: ASPIRIN EC 81 MG TABLET PO SCH (11:00)
[2021-03-04] MEDS: QUEtiapine 25 MG TABLET PER TUBE SCH ×2 (11:00→21:58)
[2021-03-04] MEDS: INSULIN GLARGINE 100 UNIT/ML SUBCUT SCH (11:00)
[2021-03-04] MEDS: PANTOPRAZOLE 40 MG VIAL IV SCH (11:01)
[2021-03-04] MEDS: TRIAMCINOLONE 0.025% CREAM 15 GM TUBE TOP SCH ×2 (11:25→22:41)
[2021-03-04] MEDS ORDERED: SODIUM BICARBONATE 650 MG TABLET PO ONE (11:46)
[2021-03-04] MEDS ORDERED: LIPASE/PROTEASE/AMYLASE 4,200 UNITS CAPSULE PO ONE (12:00)
[2021-03-04] MEDS: ATORVASTATIN 40 MG TABLET PO SCH (21:57)
[2021-03-05] MEDS: INSULIN LISPRO 100 UNIT/ML SUBCUT SCH ×4 (00:02→18:59)
[2021-03-05 05:24] LABS: Basophils % 0.2 % (0.0-0.8); Eosinophils # 0.1 10*3/uL (0.0-0.87); Eosinophils % 0.5 % (0.00-10.9); Hematocrit 35.2 VOL% (42.0-52.0); Hemoglobin 12.1 GM/DL (14.0-18.0); Immature Granulocytes Absolute 0.13 #; Lymphocytes # 1.4 10*3/uL (1.4-4.0); Lymphocytes % 11.2 % (21.2-54.2); Mean Corpuscular HGB Conc 34.4 GM/DL (32-36); Mean Corpuscular Volume 86.7 FL (87-102); Mean Platelet Volume 10.1 FL (9.6-12.0); Monocytes % 5.5 % (1.7-12.7); Neutrophils % 81.6 % (38.7-73.9); Platelet Count 425 T/CUMM (130-400); Red Blood Count 4.06 MC/CUMM (3.8-5.5); White Blood Count 12.5 T/CUMM (4-12)
[2021-03-05 05:54] LABS: Bilirubin,Total 1.1 MG/DL (0.20-1.00); Calcium 8.5 MG/DL (8.5-10.1); Osmolality,Calculated 283.4 MOS/KG (273-304); Potassium 3.5 MMOL/L (3.5-5.1); Total Protein 5.6 G/DL (6.4-8.2)
[2021-03-05] MEDS: ASPIRIN EC 81 MG TABLET PO SCH (09:05)
[2021-03-05] MEDS: QUEtiapine 25 MG TABLET PER TUBE SCH ×2 (09:05→21:08)
[2021-03-05] MEDS: AMIODARONE 200 MG TABLET PO SCH ×2 (09:05→21:08)
[2021-03-05] MEDS: METOPROLOL TARTRATE 50 MG TABLET PO SCH ×2 (09:05→21:08)
[2021-03-05] MEDS: DILTIAZEM CD 240 MG CAPSULE PO SCH (09:05)
[2021-03-05] MEDS: INSULIN GLARGINE 100 UNIT/ML SUBCUT SCH (09:05)
[2021-03-05] MEDS: PANTOPRAZOLE 40 MG VIAL IV SCH (09:41)
[2021-03-05] MEDS: TRIAMCINOLONE 0.025% CREAM 15 GM TUBE TOP SCH ×2 (09:41→21:55)
[2021-03-05] MEDS ORDERED: METOPROLOL TARTRATE 5 MG/5 ML VIAL IV ONE (10:10)
[2021-03-05] MEDS: METOPROLOL TARTRATE 5 MG/5 ML VIAL IV PRN ×2 (16:09→20:56)
[2021-03-05] MEDS: ZINC OXIDE 16% PASTE 57 GM TUBE TOP SCH ×2 (18:55→20:57)
[2021-03-05] MEDS: ATORVASTATIN 40 MG TABLET PO SCH (21:08)
[2021-03-06] MEDS: INSULIN LISPRO 100 UNIT/ML SUBCUT SCH ×4 (00:18→17:39)
[2021-03-06] MEDS: METOPROLOL TARTRATE 5 MG/5 ML VIAL IV PRN ×5 (01:13→21:27)
[2021-03-06] MEDS ORDERED: METOPROLOL TARTRATE 5 MG/5 ML VIAL IV ONE ×2 (03:21→07:52)
[2021-03-06 06:01] LABS: Basophils % 0.1 % (0.0-0.8); Eosinophils % 0.2 % (0.00-10.9); Hematocrit 29.8 VOL% (42.0-52.0); Hemoglobin 10.2 GM/DL (14.0-18.0); Immature Granulocytes % 1.4 %; Immature Granulocytes Absolute 0.19 #; Lymphocytes # 1.6 10*3/uL (1.4-4.0); Mean Corpuscular HGB Conc 34.2 GM/DL (32-36); Mean Corpuscular Volume 87.1 FL (87-102); Mean Platelet Volume 10.3 FL (9.6-12.0); Monocytes % 4.8 % (1.7-12.7); Neutrophils % 81.5 % (38.7-73.9); Platelet Count 526 T/CUMM (130-400); Red Blood Count 3.42 MC/CUMM (3.8-5.5); Red Cell Distribution Width 14.5 % (9.3-17.3); White Blood Count 13.7 T/CUMM (4-12)
[2021-03-06 06:31] LABS: Calcium 8.3 MG/DL (8.5-10.1); Osmolality,Calculated 287.7 MOS/KG (273-304); Potassium 4.1 MMOL/L (3.5-5.1)
[2021-03-06] MEDS ORDERED: AMIODARONE INJ 150 MG in DEXTROSE 5% 100 ML IV ONE (06:44)
[2021-03-06] MEDS ORDERED: AMIODARONE INJ 450 MG in DEXTROSE 5% 241 ML IV SCH (07:00)
[2021-03-06] MEDS: ASPIRIN EC 81 MG TABLET PO SCH (08:12)
[2021-03-06] MEDS: QUEtiapine 25 MG TABLET PER TUBE SCH ×2 (08:12→21:18)
[2021-03-06] MEDS: INSULIN GLARGINE 100 UNIT/ML SUBCUT SCH (08:12)
[2021-03-06] MEDS: TRIAMCINOLONE 0.025% CREAM 15 GM TUBE TOP SCH ×2 (09:18→21:19)
[2021-03-06] MEDS: ZINC OXIDE 16% PASTE 57 GM TUBE TOP SCH ×2 (09:18→21:25)
[2021-03-06] MEDS: PANTOPRAZOLE 40 MG VIAL IV SCH (09:18)
[2021-03-06] MEDS: AMIODARONE INJ 450 MG in DEXTROSE 5% 241 ML IV SCH (12:54)
[2021-03-06] MEDS: ATORVASTATIN 40 MG TABLET PO SCH (21:19)
[2021-03-07] MEDS: INSULIN LISPRO 100 UNIT/ML SUBCUT SCH ×4 (00:16→18:28)
[2021-03-07] MEDS: METOPROLOL TARTRATE 5 MG/5 ML VIAL IV PRN (01:38)
[2021-03-07 06:33] LABS: Basophils % 0.3 % (0.0-0.8); Eosinophils % 0.2 % (0.00-10.9); Hematocrit 27.7 VOL% (42.0-52.0); Hemoglobin 8.8 GM/DL (14.0-18.0); Immature Granulocytes % 2.4 %; Immature Granulocytes Absolute 0.28 #; Lymphocytes # 1.7 10*3/uL (1.4-4.0); Mean Corpuscular HGB Conc 31.8 GM/DL (32-36); Monocytes % 6.6 % (1.7-12.7); Neutrophils % 75.5 % (38.7-73.9); Platelet Count 332 T/CUMM (130-400); Red Blood Count 3.01 MC/CUMM (3.8-5.5); White Blood Count 11.4 T/CUMM (4-12)
[2021-03-07] MEDS: AMIODARONE INJ 450 MG in DEXTROSE 5% 241 ML IV SCH (06:35)
[2021-03-07 07:31] LABS: Albumin 2.1 G/DL (3.4-5.0); Bilirubin,Total 0.7 MG/DL (0.20-1.00); Calcium 8.3 MG/DL (8.5-10.1); Osmolality,Calculated 296.3 MOS/KG (273-304); Potassium 4.8 MMOL/L (3.5-5.1); Total Protein 5.2 G/DL (6.4-8.2)
[2021-03-07] MEDS ORDERED: SODIUM CHLORIDE 0.9% 500 ML IV ONE (07:55)
[2021-03-07 08:11] LABS: Calcium 8.4 MG/DL (8.5-10.1); Osmolality,Calculated 298.1 MOS/KG (273-304); Potassium 4.8 MMOL/L (3.5-5.1)
[2021-03-07] MEDS ORDERED: DILTIAZEM INJ 100 MG in SODIUM CHLORIDE 0.9% 100 ML IV SCH (09:30)
[2021-03-07] MEDS: PANTOPRAZOLE 40 MG VIAL IV SCH (10:11)
[2021-03-07] MEDS: QUEtiapine 25 MG TABLET PER TUBE SCH ×2 (10:34→21:23)
[2021-03-07] MEDS: ASPIRIN EC 81 MG TABLET PO SCH (10:34)
[2021-03-07] MEDS: AMIODARONE 200 MG TABLET PO SCH ×3 (10:36→21:22)
[2021-03-07] MEDS: INSULIN GLARGINE 100 UNIT/ML SUBCUT SCH (10:38)
[2021-03-07] MEDS: TRIAMCINOLONE 0.025% CREAM 15 GM TUBE TOP SCH ×2 (10:57→21:28)
[2021-03-07] MEDS: ZINC OXIDE 16% PASTE 57 GM TUBE TOP SCH ×2 (10:57→21:28)
[2021-03-07] MEDS: METOPROLOL TARTRATE 25 MG TABLET NG SCH ×2 (11:02→21:22)
[2021-03-07] MEDS: DILTIAZEM 30 MG TABLET PO SCH ×3 (13:59→21:24)
[2021-03-07 15:31] LABS: Calcium 8.1 MG/DL (8.5-10.1); Potassium 4.1 MMOL/L (3.5-5.1)
[2021-03-07] MEDS: ATORVASTATIN 40 MG TABLET PO SCH (21:23)
[2021-03-08] MEDS: INSULIN LISPRO 100 UNIT/ML SUBCUT SCH ×5 (00:47→23:38)
[2021-03-08 04:39] LABS: Basophils % 0.3 % (0.0-0.8); Eosinophils # 0.1 10*3/uL (0.0-0.87); Eosinophils % 0.8 % (0.00-10.9); Hematocrit 24.6 VOL% (42.0-52.0); Immature Granulocytes % 3.3 %; Lymphocytes # 1.6 10*3/uL (1.4-4.0); Lymphocytes % 17.9 % (21.2-54.2); Mean Corpuscular HGB Conc 32.5 GM/DL (32-36); Mean Corpuscular Volume 90.1 FL (87-102); Mean Platelet Volume 9.7 FL (9.6-12.0); Monocytes % 7.8 % (1.7-12.7); NRBC # 0.04 10*3/uL; Neutrophils % 69.9 % (38.7-73.9); Platelet Count 364 T/CUMM (130-400); Red Blood Count 2.73 MC/CUMM (3.8-5.5); Red Cell Distribution Width 15.1 % (9.3-17.3); White Blood Count 9.1 T/CUMM (4-12)
[2021-03-08 05:04] LABS: Calcium 8.5 MG/DL (8.5-10.1); Potassium 4.4 MMOL/L (3.5-5.1)
[2021-03-08] MEDS ORDERED: DIGOXIN 0.5 MG/2 ML AMP IV ONE (08:08)
[2021-03-08] MEDS: PANTOPRAZOLE 40 MG VIAL IV SCH (08:55)
[2021-03-08] MEDS: DILTIAZEM 30 MG TABLET PO SCH ×4 (10:05→20:35)
[2021-03-08] MEDS: AMIODARONE 200 MG TABLET PO SCH ×2 (10:05→20:35)
[2021-03-08] MEDS: METOPROLOL TARTRATE 25 MG TABLET NG SCH (10:05)
[2021-03-08] MEDS: ASPIRIN EC 81 MG TABLET PO SCH (10:06)
[2021-03-08] MEDS: QUEtiapine 25 MG TABLET PER TUBE SCH ×2 (10:06→20:35)
[2021-03-08] MEDS: ZINC OXIDE 16% PASTE 57 GM TUBE TOP SCH ×2 (10:07→20:35)
[2021-03-08] MEDS: TRIAMCINOLONE 0.025% CREAM 15 GM TUBE TOP SCH ×2 (10:07→20:35)
[2021-03-08 10:10] LABS: Folate 5.93 NG/ML (5.38-24.0)
[2021-03-08 10:15] LABS: Albumin 2.3 G/DL (3.4-5.0); Bilirubin,Direct 0.44 MG/DL (0.0-0.20); Bilirubin,Indirect 0.3 MG/DL (0.0-1.0); Bilirubin,Total 0.7 MG/DL (0.20-1.00); Total Protein 5.8 G/DL (6.4-8.2)
[2021-03-08 10:37] LABS: % Iron Saturation 23.5 % (18-50)
[2021-03-08] MEDS: INSULIN GLARGINE 100 UNIT/ML SUBCUT SCH (11:48)
[2021-03-08] MEDS: DIGOXIN 0.125 MG TABLET NG SCH (12:26)
[2021-03-08] MEDS: METOPROLOL TARTRATE 50 MG TABLET NG SCH (20:35)
[2021-03-08] MEDS: ATORVASTATIN 40 MG TABLET PO SCH (20:35)
[2021-03-09 05:56] LABS: Basophils % 0.4 % (0.0-0.8); Eosinophils # 0.1 10*3/uL (0.0-0.87); Eosinophils % 1.1 % (0.00-10.9); Hematocrit 22.1 VOL% (42.0-52.0); Hemoglobin 7.4 GM/DL (14.0-18.0); Immature Granulocytes % 1.8 %; Immature Granulocytes Absolute 0.14 #; Lymphocytes # 1.2 10*3/uL (1.4-4.0); Lymphocytes % 15.6 % (21.2-54.2); Mean Corpuscular HGB Conc 33.5 GM/DL (32-36); Mean Corpuscular Volume 90.2 FL (87-102); Mean Platelet Volume 9.7 FL (9.6-12.0); Monocytes % 6.9 % (1.7-12.7); NRBC # 0.05 10*3/uL; Neutrophils % 74.2 % (38.7-73.9); Platelet Count 347 T/CUMM (130-400); Red Blood Count 2.45 MC/CUMM (3.8-5.5); White Blood Count 7.9 T/CUMM (4-12)
[2021-03-09 06:10] LABS: Calcium 8.2 MG/DL (8.5-10.1); Osmolality,Calculated 277.7 MOS/KG (273-304); Potassium 3.3 MMOL/L (3.5-5.1)
[2021-03-09 06:12] LABS: Albumin 1.9 G/DL (3.4-5.0); Bilirubin,Total 0.7 MG/DL (0.20-1.00); Calcium 8.2 MG/DL (8.5-10.1); Osmolality,Calculated 275.8 MOS/KG (273-304); Osmolality,Calculated 278.7 MOS/KG (273-304); Potassium 3.2 MMOL/L (3.5-5.1); Potassium 3.4 MMOL/L (3.5-5.1); Total Protein 4.9 G/DL (6.4-8.2)
[2021-03-09] MEDS: INSULIN LISPRO 100 UNIT/ML SUBCUT SCH ×3 (06:13→18:53)
[2021-03-09] MEDS ORDERED: LACTATED RINGERS 1,000 ML IV SCH (06:30)
[2021-03-09] MEDS ORDERED: SODIUM CHLORIDE 0.9% 1,000 ML IV PRN (08:58)
[2021-03-09] MEDS ORDERED: MAGNESIUM SULF RIDER 2 GM/50 ML PREMIX IV ONE (09:00)
[2021-03-09] MEDS: DILTIAZEM 30 MG TABLET PO SCH ×4 (09:06→20:46)
[2021-03-09] MEDS: QUEtiapine 25 MG TABLET PER TUBE SCH ×2 (09:06→20:46)
[2021-03-09] MEDS: ASPIRIN EC 81 MG TABLET PO SCH (09:07)
[2021-03-09] MEDS: AMIODARONE 200 MG TABLET PO SCH ×2 (09:07→20:46)
[2021-03-09] MEDS: PANTOPRAZOLE 40 MG VIAL IV SCH (09:14)
[2021-03-09] MEDS: POTASSIUM CHLORIDE RIDER 10 MEQ/100 ML PREMIX IV SCH ×3 (09:17→11:42)
[2021-03-09] MEDS: ZINC OXIDE PASTE 113 GM TUBE TOP PRN (09:21)
[2021-03-09] MEDS: TRIAMCINOLONE 0.025% CREAM 15 GM TUBE TOP SCH ×2 (09:21→20:47)
[2021-03-09] MEDS: ZINC OXIDE 16% PASTE 57 GM TUBE TOP SCH ×2 (09:22→20:47)
[2021-03-09] MEDS: METOPROLOL TARTRATE 50 MG TABLET NG SCH ×2 (09:26→20:46)
[2021-03-09] MEDS: INSULIN GLARGINE 100 UNIT/ML SUBCUT SCH (09:27)
[2021-03-09] MEDS ORDERED: propofoL 200 MG/20 ML VIAL IV ONE (12:51)
[2021-03-09] MEDS ORDERED: ETOMIDATE 20 MG/10 ML VIAL IV ONE (12:51)
[2021-03-09] MEDS ORDERED: LIDOCAINE 2% 5 ML VIAL ONE (12:51)
[2021-03-09] MEDS: DIGOXIN 0.125 MG TABLET NG SCH (13:43)
[2021-03-09] MEDS: ATORVASTATIN 40 MG TABLET PO SCH (20:46)
[2021-03-10] MEDS: INSULIN LISPRO 100 UNIT/ML SUBCUT SCH ×4 (00:20→18:05)
[2021-03-10] MEDS: ZINC OXIDE PASTE 113 GM TUBE TOP PRN (00:20)
[2021-03-10 05:15] LABS: Basophils % 0.5 % (0.0-0.8); Eosinophils # 0.1 10*3/uL (0.0-0.87); Eosinophils % 0.9 % (0.00-10.9); Hematocrit 28.9 VOL% (42.0-52.0); Immature Granulocytes % 1.7 %; Immature Granulocytes Absolute 0.15 #; Mean Corpuscular HGB Conc 34.6 GM/DL (32-36); Mean Corpuscular Volume 89.5 FL (87-102); Mean Platelet Volume 9.9 FL (9.6-12.0); Monocytes % 4.8 % (1.7-12.7); Neutrophils % 81.1 % (38.7-73.9); Platelet Count 362 T/CUMM (130-400); Red Cell Distribution Width 15.8 % (9.3-17.3); White Blood Count 8.9 T/CUMM (4-12)
[2021-03-10 05:17] LABS: Red Blood Count 3.23 MC/CUMM (3.8-5.5)
[2021-03-10 05:44] LABS: Calcium 8.1 MG/DL (8.5-10.1); Potassium 4.1 MMOL/L (3.5-5.1)
[2021-03-10 05:51] LABS: Albumin 1.9 G/DL (3.4-5.0); Bilirubin,Total 1.8 MG/DL (0.20-1.00); Calcium 7.9 MG/DL (8.5-10.1); Osmolality,Calculated 274.4 MOS/KG (273-304); Potassium 4.3 MMOL/L (3.5-5.1)
[2021-03-10] MEDS: ZINC OXIDE 16% PASTE 57 GM TUBE TOP SCH ×2 (09:26→21:16)
[2021-03-10] MEDS: TRIAMCINOLONE 0.025% CREAM 15 GM TUBE TOP SCH ×2 (09:27→21:16)
[2021-03-10] MEDS: QUEtiapine 25 MG TABLET PER TUBE SCH ×2 (09:28→21:01)
[2021-03-10] MEDS: PANTOPRAZOLE 40 MG VIAL IV SCH (09:28)
[2021-03-10] MEDS: INSULIN GLARGINE 100 UNIT/ML SUBCUT SCH (09:28)
[2021-03-10] MEDS: METOPROLOL TARTRATE 50 MG TABLET NG SCH ×2 (09:28→21:02)
[2021-03-10] MEDS: AMIODARONE 200 MG TABLET PO SCH ×2 (09:28→21:01)
[2021-03-10] MEDS: ASPIRIN EC 81 MG TABLET PO SCH (09:28)
[2021-03-10] MEDS: DILTIAZEM 30 MG TABLET PO SCH ×4 (09:31→21:01)
[2021-03-10] MEDS: DIGOXIN 0.125 MG TABLET NG SCH (13:21)
[2021-03-10] MEDS: ATORVASTATIN 40 MG TABLET PO SCH (21:01)
[2021-03-11] MEDS: INSULIN LISPRO 100 UNIT/ML SUBCUT SCH ×4 (01:32→17:14)
[2021-03-11 05:16] LABS: Basophils % 0.2 % (0.0-0.8); Eosinophils # 0.1 10*3/uL (0.0-0.87); Eosinophils % 0.8 % (0.00-10.9); Hematocrit 32.6 VOL% (42.0-52.0); Hemoglobin 10.7 GM/DL (14.0-18.0); Immature Granulocytes % 1.1 %; Immature Granulocytes Absolute 0.14 #; Lymphocytes # 0.8 10*3/uL (1.4-4.0); Lymphocytes % 6.2 % (21.2-54.2); Mean Corpuscular HGB Conc 32.8 GM/DL (32-36); Mean Corpuscular Volume 88.6 FL (87-102); Mean Platelet Volume 10.3 FL (9.6-12.0); Monocytes % 4.4 % (1.7-12.7); Neutrophils % 87.3 % (38.7-73.9); Platelet Count 407 T/CUMM (130-400); Red Blood Count 3.68 MC/CUMM (3.8-5.5); Red Cell Distribution Width 16.7 % (9.3-17.3); White Blood Count 13.1 T/CUMM (4-12)
[2021-03-11 05:34] LABS: Calcium 8.1 MG/DL (8.5-10.1); Osmolality,Calculated 277.2 MOS/KG (273-304); Potassium 3.9 MMOL/L (3.5-5.1)
[2021-03-11] MEDS: AMIODARONE 200 MG TABLET PO SCH ×2 (08:34→20:52)
[2021-03-11] MEDS: DILTIAZEM 30 MG TABLET PO SCH ×4 (08:34→20:49)
[2021-03-11] MEDS: QUEtiapine 25 MG TABLET PER TUBE SCH ×2 (08:35→20:49)
[2021-03-11] MEDS: METOPROLOL TARTRATE 50 MG TABLET NG SCH ×2 (08:35→20:52)
[2021-03-11] MEDS: ASPIRIN EC 81 MG TABLET PO SCH (08:35)
[2021-03-11] MEDS: INSULIN GLARGINE 100 UNIT/ML SUBCUT SCH (08:35)
[2021-03-11] MEDS: ZINC OXIDE 16% PASTE 57 GM TUBE TOP SCH ×2 (08:36→20:53)
[2021-03-11] MEDS: PANTOPRAZOLE 40 MG VIAL IV SCH (08:36)
[2021-03-11] MEDS: TRIAMCINOLONE 0.025% CREAM 15 GM TUBE TOP SCH ×2 (08:37→20:53)
[2021-03-11 10:28] LABS: Bilirubin,Urine Negative (Negative); Blood, Urine Negative (Negative); Glucose,Urine (UA) >=500 mg/dL (Negative); Ketones,Urine Negative (Negative); Mucus,Urine Occasional /LPF (Occasional); Nitrite,Urine Negative (Negative); Protein,Urine Negative; RBC,Urine 43 /HPF (0-4); Squamous Epithelial Cell,Urine Occasional /HPF (0-10); Urine Appearance CLEAR (Clear); Urine Color Yellow (Yellow); Urine Specific Gravity 1.048 (1.001-1.035)
[2021-03-11] MEDS: DIGOXIN 0.125 MG TABLET NG SCH (14:02)
[2021-03-11] MEDS ORDERED: METFORMIN PO SCH (15:00)
[2021-03-11] MEDS ORDERED: CANAGLIFLOZIN PO SCH (15:00)
[2021-03-11] MEDS ORDERED: [UNRECOGNIZED DRUG - OTHER] PO SCH (15:00)
[2021-03-11] MEDS: ATORVASTATIN 40 MG TABLET PO SCH (20:53)
[2021-03-12] MEDS: INSULIN LISPRO 100 UNIT/ML SUBCUT SCH ×2 (00:18→06:38)
[2021-03-12 05:36] LABS: Basophils % 0.2 % (0.0-0.8); Eosinophils # 0.2 10*3/uL (0.0-0.87); Eosinophils % 1.7 % (0.00-10.9); Hematocrit 33.3 VOL% (42.0-52.0); Hemoglobin 10.8 GM/DL (14.0-18.0); Immature Granulocytes % 1.4 %; Immature Granulocytes Absolute 0.18 #; Lymphocytes # 1.2 10*3/uL (1.4-4.0); Lymphocytes % 9.3 % (21.2-54.2); Mean Corpuscular HGB Conc 32.4 GM/DL (32-36); Mean Corpuscular Volume 89.8 FL (87-102); Mean Platelet Volume 10.1 FL (9.6-12.0); Monocytes % 6.9 % (1.7-12.7); Neutrophils % 80.5 % (38.7-73.9); Platelet Count 493 T/CUMM (130-400); Red Blood Count 3.71 MC/CUMM (3.8-5.5); Red Cell Distribution Width 16.6 % (9.3-17.3); White Blood Count 12.7 T/CUMM (4-12)
[2021-03-12 05:48] LABS: Calcium 8.1 MG/DL (8.5-10.1); Osmolality,Calculated 266.4 MOS/KG (273-304)
[2021-03-12] MEDS: ZINC OXIDE 16% PASTE 57 GM TUBE TOP SCH (08:46)
[2021-03-12] MEDS: QUEtiapine 25 MG TABLET PER TUBE SCH (08:46)
[2021-03-12] MEDS: DILTIAZEM 30 MG TABLET PO SCH ×2 (08:46→13:23)
[2021-03-12] MEDS: AMIODARONE 200 MG TABLET PO SCH (08:46)
[2021-03-12] MEDS: TRIAMCINOLONE 0.025% CREAM 15 GM TUBE TOP SCH (08:46)
[2021-03-12] MEDS: METOPROLOL TARTRATE 50 MG TABLET NG SCH (08:46)
[2021-03-12] MEDS: ASPIRIN EC 81 MG TABLET PO SCH (08:46)
[2021-03-12] MEDS: INSULIN GLARGINE 100 UNIT/ML SUBCUT SCH (08:50)
[2021-03-12] MEDS: PANTOPRAZOLE 40 MG VIAL IV SCH (08:50)
[2021-03-12 12:07] VITALS: BP 125/76
[2021-03-12] MEDS: DIGOXIN 0.125 MG TABLET NG SCH (13:23)
== END 2021-03-12 16:20 | disposition home health service (06) | DRG 640 ==
LOC: EDBD → EDUNIT# → N.ED 17:28 → N.EDINP 20:13 → SUATTDRO 20:13 → N.EDINP 20:49 → N.ICU 21:24 → N.TELEN 03-03 22:48
PROVIDERS: ADMIT Internal Medicine; ATTEND Internal Medicine
PROC: EGDWPEG (ICD-10-PCS; 2021-03-09 11:50)